=== PATIENT | female | born 1965 | race Caucasian/White ===

== ENCOUNTER 2017-06-24 02:01 | Emergency (ER) | payer OTHER ==
--- NOTE | 2017-06-24 02:17 | ED Physician Documentation ---
Abdominal Pain - HISTORIAN Historian: patient - HPI Chief Complaint: Abdominal Pain Onset: hours (1) Timing: worse Severity: severe Further Comments: yes (52 year old female patient brought in by EMS with complaint of abdominal pain. Patient yelling "bring me pain medicine, hurry". Rocking on hands and knees on stretcher. Instructed patient to repostion self on back for exam. Patient frequently yelling "bring me pain medicine". Restless, kicking legs, will not answer ROS questions. Friend at bedside cannot answer ROS questions. States "her pain is managed by her pain doctor". Patient reports pain started 1 hour ago. 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 Friend reports 2 family members with nausea and vomiting.) - ROS CONST: denies: no problems Comment: Patient uncooperative with ROS and H&P. - SOCIAL HX Smoking History: non-smoker - FAMILY HX Family History: denies: none - PAST HX Past History: other (Obtained from [facility] paper work - chronic constipation, depression, GERD, HTN, Insomnia, neuropathy of foot, urinary incontinence. ) Surgeries/Procedures: cholecystectomy - VITAL SIGNS Vital Signs: Vital Signs Temp Pulse Resp BP Pulse Ox 100 H 36 H 127/57 98 06/24/17 02:05 06/24/17 02:05 06/24/17 02:05 06/24/17 02:05 - REVIEWED ASSESSMENTS Nursing Assessment Reviewed: Yes Vitals Reviewed: Yes Progress - Progress Progress: Encouraged patient relax, slow down breathing. Explained work up would have to be completed as patient could not answer ROS and history. Old records reviewed, no previous ER admissions. Patient restless, moving all over stretcher. Repositions self on hands and knees. ED Results Lab/Radiology - Lab Results Lab Results: Lab Results 06/24/17 06/24/17 02:12 02:12 WBC 9.40 K/ul K/ul (4.00-12.00) RBC 3.77 M/ul L M/ul (3.90-5.20) Hgb 12.4 g/dL g/dL (12.0-16.0) Hct 37.0 % % (34.5-46.5) MCV 98.0 fl fl (80.0-100.0) MCH 33.0 pg pg (28.0-34.0) MCHC 33.7 g/dL g/dL (30.0-36.0) RDW 14.1 % % (11.3-14.3) Plt Count 329 K/mm3 K/mm3 (130-400) Neut % (Auto) 56.9 % % (39.0-79.0) Lymph % (Auto) 33.5 % % (16.0-50.0) Bowie % (Auto) 5.1 % % (0.0-11.0) Eos % (Auto) 1.3 % % (0.0-6.8) Baso % (Auto) 0.5 (0.0-1.5) Neut # (Auto) 5.3 # k/uL # k/uL (1.4-7.7) Lymph # (Auto) 3.1 # k/uL # k/uL (0.6-4.0) Bowie # (Auto) 0.5 # k/uL # k/uL (0.0-0.9) Eos # (Auto) 0.1 # k/uL # k/uL (0.0-0.6) Baso # (Auto) 0.0 # k/uL # k/uL (0.0-0.5) Reactive Lymphs % 2.7 % % (0.0-5.0) Reactive Lymphs # 0.3 # k/uL # k/uL (0.0-0.8) Sodium 139 mmol/L mmol/L (136-145) Potassium 3.2 mmol/L L mmol/L (3.5-5.0) Chloride 103 mmol/L mmol/L (98-110) Carbon Dioxide 25 mmol/L mmol/L (20-32) BUN 14 mg/dL mg/dL (10-26) Creatinine 0.9 mg/dL mg/dL (0.4-1.5) Estimated Creat Clear 85 Est GFR ( Amer) > 60 (60 - ) Est GFR (Non-Af Amer) > 60 (60 - ) Glucose 178 mg/dL H mg/dL (70-99) Calcium 9.5 mg/dL mg/dL (8.5-10.5) Total Bilirubin 0.9 mg/dL mg/dL (0.2-1.2) AST 27 U/L U/L (0-41) ALT 29 U/L U/L (0-45) Alkaline Phosphatase 63 U/L U/L (46-116) Total Protein 6.7 g/dL g/dL (6.0-8.5) Albumin 4.4 g/dL g/dL (3.0-5.5) - Orders Orders: ED Orders Category Date Time Status ABDOMEN COMPLETE [RAD] Stat Exams 06/24/17 Ordered CBC/PLATELET/DIFF Stat Lab 06/24/17 02:12 Completed CMP Stat Lab 06/24/17 02:12 Completed UA W/MICRO IF INDICATED Stat Lab 06/24/17 02:12 Ordered Abdominal Pain Physical Exam - Physical Exam General Appearance: anxious EENT: eye inspection normal, SUSANNE RESPIRATORY: no resp distress, chest non-tender, breath sounds normal CVS: reg rate & rhythm, heart sounds normal, equal pulses, no murmur, no gallop , PMI nml, no JVD, no friction rub, 24 ABDOMEN: soft, no organomegaly, normal bowel sounds, no abdominal bruit, no distension, other (no grimace with palpation, yells out "I'm in pain") SKIN: normal color, warm/dry, NR, INT, PAL, DR EXTREMITIES: non-tender (moves and repositions self on stretcher), normal range of motion, no evidence of injury, no edema NEURO: oriented X3, CN's nml as tested, motor nml, sensation nml Vital Signs: Vital Signs Temp Pulse Resp BP Pulse Ox 100 H 36 H 127/57 98 06/24/17 02:05 06/24/17 02:05 06/24/17 02:05 06/24/17 02:05
[2017-06-24 02:23] LABS: BASOPHILS % 0.5 (0.0-1.5); EOSINOPHILS % 1.3 % (0.0-6.8); MONOCYTES % 5.1 % (0.0-11.0); NEUTROPHILS # 5.3 # k/uL (1.4-7.7)
[2017-06-24 02:30] LABS: eGFR (African) > 60; eGFR (Non-African) > 60
[2017-06-24] MEDS ORDERED: KETOROLAC TROMETHAMINE 60 MG/2 ML VIAL ONE (03:17)
[2017-06-24] MEDS: BUTORPHANOL TARTRATE 2 MG/ML VIAL IV ONE (03:22)
[2017-06-24] MEDS: KETOROLAC TROMETHAMINE 30 MG/1ML VIAL IVP ONE (03:22)
[2017-06-24] MEDS: PROMETHAZINE HCL 25 MG/ML VIAL IM ONE (03:22)
[2017-06-24] MEDS: KETOROLAC TROMETHAMINE 60 MG/2 ML VIAL IM ONE (03:25)
[2017-06-24 06:00] VITALS: BP 125/86
--- NOTE | 2017-06-24 06:32 | Diagnostic Imaging Report ---
RUPERT LAZAR (ROMANA) - ER [facility] [address] [facility].[address] [address] Report Submission Date: Jun 24, 2017 3:06:12 AM CDT Patient Study Name: ALYSSA LIMON Date: Jun 24, 2017 2:36:12 AM CDT Modality Type: CR Gender: F Description: ABDOMEN : 69 Institution: [facility] Physician: RUPERT LAZAR (ROMANA) - ER Abdominal series History: Abdominal pain Findings: Cholecystectomy clips are present. L5/S1 degenerative disc disease is noted. T12 to L3 posterior decompression has been performed. A single loop of small bowel is borderline distended. The bowel gas pattern is otherwise normal without free air significant constipation. Impression: Nonspecific borderline distention of single loop of small bowel. Electronically signed on Jun 24, 2017 3:06:12 AM CDT by: Daniel CAMPOVERDE
== END 2017-06-24 03:49 ==
LOC: ED 02:01
DX: R10.9 Unspecified abdominal pain (principal)
CPT/HCPCS: 74020; 80053; 85025; J0595; J1885; J2550; 96375; 99283; S1016

== ENCOUNTER 2017-06-24 09:13 | Emergency (ER) | payer OTHER ==
[2017-06-24] MEDS ORDERED: ONDANSETRON HCL/PF 4 MG/ 2ML VIAL ONE (09:19)
[2017-06-24] MEDS ORDERED: Lidocaine 2%Visc 15ml 20 MG/ML UDC ONE (09:20)
[2017-06-24] MEDS: ONDANSETRON HCL/PF 4 MG/ 2ML VIAL IVP ONE ×2 (09:20→10:10)
[2017-06-24] MEDS ORDERED: MAGNESIUM HYDROXIDE/AL HYDROX 30 ML UDC PO ONE (09:20)
[2017-06-24] MEDS ORDERED: 0.9 % SODIUM CHLORIDE 1,000 ML IV ONE (09:22)
[2017-06-24] MEDS: MAG HYDROX/AL HYDROX/SIMETH 30 ML, Lidocaine 2%Visc 15ml 20 MG, PHENobarb/HYOSCY/ATROPI... PO ONE ×3 (09:23)
[2017-06-24] MEDS ORDERED: fentaNYL CITRATE/PF 100 MCG/ 2ML AMP ONE (09:23)
[2017-06-24] MEDS: 0.9 % SODIUM CHLORIDE 1,000 ML IV ONE ×2 (09:30→10:30)
[2017-06-24 09:42] LABS: MEAN CORPUSCULAR HEMOGLOBIN 33.6 pg (28.0-34.0); MEAN CORPUSCULAR VOLUME 99.4 fl (80.0-100.0)
[2017-06-24] MEDS: fentaNYL CITRATE/PF 100 MCG/ 2ML AMP IVP ONE (09:45)
[2017-06-24 09:51] LABS: eGFR (African) > 60; eGFR (Non-African) 39
[2017-06-24 10:09] LABS: SEGMENTED NEUTROPHILS % 77 % (39-79)
--- NOTE | 2017-06-24 10:15 | ED Physician Documentation ---
Abdominal Pain - HISTORIAN Historian: patient, other (sister) - HPI Stated Complaint: upper abd pain radiating to back Chief Complaint: Abdominal Pain Additonal Information: pt is chronic back pain pt but was here last noct w/abd pain. she ret now w/ severe abd pain epigastric area-hx gerd Onset: days ago (1-2) Duration: constant, waxing, waning (rates 10/10) Timing: worse Context: denies: out of country travel, bad food Severity: severe Quality: pain, other (helps to lie on lt side) Associated Symptoms: nausea, vomiting, diarrhea Exacerbated by: movements, upright position, other (lying on back) Relieved by: other (meds ) - ROS CONST: no problems CVS/RESP: none EYES/ENT: none MS/SKIN/LYMPH: none NEURO/PSYCH: headache (has migraine but better since BOTOX) - SOCIAL HX Smoking History: non-smoker Alcohol Use: none Drug Use: none - FAMILY HX Family History: no significant history - PAST HX Past History: GERD, other (HTN IBS CHR CONSTIPATION DEPOORESSION IBS HX CA SOPINE W/RADIATION AND SURG LOW EXT NEUROPATHY UA INCONT CHRONIC PAIN PT W/CONTRACT) Surgeries/Procedures: cholecystectomy, hysterectomy, other (NECK W/HARDWARE ) Home Medications: Ambulatory Orders Medication Instructions Recorded Biotin/Calcium Carbonate [Biotin 1 each PO QDAY 06/24/17 800 Mcg Tablet] Bisacodyl [Women's Laxative] 5 mg PO QDAY 06/24/17 Bupropion HCl [Bupropion Xl] 150 mg PO QDAY 06/24/17 Cyclobenzaprine HCl [Flexeril] 10 mg PO QD 06/24/17 Duloxetine HCl 30 mg PO QDAY 06/24/17 Duloxetine HCl 60 mg PO QDAY 06/24/17 Mecobalamin [B-12] 1,000 mcg SL QDAY 06/24/17 Oxycodone HCl/Acetaminophen 1 each PO QID 06/24/17 [Percocet 10/325] diphenhydrAMINE HCL [Benadryl] 25 mg PO HS 06/24/17 Allergies/Adverse Reactions: Allergies Allergy/AdvReac Type Severity Reaction Status Date / Time succinylcholine Allergy Verified 06/24/17 09:41 - VITAL SIGNS Vital Signs: Vital Signs Temp Pulse Resp BP Pulse Ox 97.9 F 113 H 20 69/44 94 06/24/17 09:40 06/24/17 09:40 06/24/17 09:40 06/24/17 09:40 06/24/17 09:40 - REVIEWED ASSESSMENTS Nursing Assessment Reviewed: Yes Vitals Reviewed: Yes ED Results Lab/Radiology - Lab Results Lab Results: Lab Results 06/24/17 06/24/17 09:30 09:30 WBC 14.30 K/ul H K/ul (4.00-12.00) RBC 4.81 M/ul M/ul (3.90-5.20) Hgb 16.2 g/dL H g/dL (12.0-16.0) Hct 47.8 % H % (34.5-46.5) MCV 99.4 fl fl (80.0-100.0) MCH 33.6 pg pg (28.0-34.0) MCHC 33.8 g/dL g/dL (30.0-36.0) RDW 14.0 % % (11.3-14.3) Plt Count 370 K/mm3 K/mm3 (130-400) Seg Neutrophils % 77 % % (39-79) Band Neutrophils % 4 % % (0-12) Lymphocytes % 11 % L % (16-50) Reactive Lymphocytes 8 % H % (0-5) Plt Morphology Comment Normal (NORMAL) Macrocytosis 1+ H (NEGATIVE) RBC Morph Comment Abnormal H (NORMAL) Sodium 138 mmol/L mmol/L (136-145) Potassium 3.8 mmol/L mmol/L (3.5-5.0) Chloride 101 mmol/L mmol/L (98-110) Carbon Dioxide 25 mmol/L mmol/L (20-32) BUN 16 mg/dL mg/dL (10-26) Creatinine 1.5 mg/dL mg/dL (0.4-1.5) Est GFR ( Amer) > 60 (60 - ) Est GFR (Non-Af Amer) 39 L (60 - ) Glucose 227 mg/dL H mg/dL (70-99) Calcium 9.3 mg/dL mg/dL (8.5-10.5) Total Bilirubin 0.7 mg/dL mg/dL (0.2-1.2) AST 30 U/L U/L (0-41) ALT 30 U/L U/L (0-45) Alkaline Phosphatase 69 U/L U/L (46-116) Total Protein 7.2 g/dL g/dL (6.0-8.5) Albumin 4.4 g/dL g/dL (3.0-5.5) Amylase 35 U/L U/L (20-104) - Orders Orders: ED Orders Category Date Time Status CT ABDOMEN PELVIS S [CT ABD & PELVIS W/O CON] Stat Exams 06/24/17 Taken AMYLASE Routine Lab 06/24/17 09:30 Completed CBC/PLATELET/DIFF Routine Lab 06/24/17 09:30 Completed CMP Routine Lab 06/24/17 09:30 Completed URINALYSIS Routine Lab 06/24/17 Ordered 0.9 % Sodium Chloride [Normal Saline] 1,000 ml Med 06/24/17 09:22 Discontinued IV .STK-MED 0.9 % Sodium Chloride [Normal Saline] 1,000 ml Med 06/24/17 09:23 Discontinued IV Q1H 0.9 % Sodium Chloride [Normal Saline] 1,000 ml Med 06/24/17 09:55 Discontinued IV Q1H HYDROmorphone HCL/PF [Dilaudid] Med 06/24/17 11:14 Once 0.5 mg IVP NOW ONE Lidocaine 2%Visc 15ml [Xylocaine] Med 06/24/17 09:20 Discontinued 300 mg .ROUTE .STK-MED ONE Mag Hydrox/Al Hydrox/Simeth [Mylanta] 30 ml Med 06/24/17 09:22 Discontinued Lidocaine 2%Visc 15ml [Xylocaine] 20 mg PHENobarb/HYOSCY/ATROPINE/SCOP [] 10 ml PO NOW Magnesium Hydroxide/Al Hydrox [Maalox] Med 06/24/17 09:20 Discontinued 30 ml PO .STK-MED ONE Ondansetron HCl/Pf [Zofran 4 mg/2 ml] Med 06/24/17 09:19 Discontinued 4 mg .ROUTE .STK-MED ONE Ondansetron HCl/Pf [Zofran 4 mg/2 ml] Med 06/24/17 09:22 Discontinued 4 mg IVP NOW ONE Ondansetron HCl/Pf [Zofran 4 mg/2 ml] Med 06/24/17 10:01 Discontinued 4 mg IVP NOW ONE fentaNYL CITRATE/PF [Duragesic] Med 06/24/17 09:23 Discontinued 100 mcg .ROUTE .STK-MED ONE fentaNYL CITRATE/PF [Duragesic] Med 06/24/17 09:24 Discontinued 50 mcg IVP NOW ONE EKG WITH COMPARISON Stat Ther 06/24/17 Ordered Abdominal Pain Physical Exam - Physical Exam General Appearance: moderate distress, severe distress EENT: eye inspection normal NECK: normal inspection, thyroid normal, supple RESPIRATORY: no resp distress, breath sounds normal CVS: reg rate & rhythm, heart sounds normal ABDOMEN: soft, tenderness (EPIGASTRIC AREA ALLEN) SKIN: warm/dry, normal color. No: cyanosis, diaphoresis, jaundice EXTREMITIES: no edema NEURO: oriented X3, depressed mood/affect. No: mood/affect nml Vital Signs: Vital Signs Temp Pulse Resp BP Pulse Ox 97.9 F 113 H 20 69/44 94 06/24/17 09:40 06/24/17 09:40 06/24/17 09:40 06/24/17 09:40 06/24/17 09:40 Discharge Clincal Impression: suspect perforated bowel, chronic pain pt-ca spine w/radiation, hyperglycemia Referrals: Lizett Head MD [Primary Care Provider] - 2 Days Home Medications: Ambulatory Orders Biotin/Calcium Carbonate [Biotin 800 Mcg Tablet] 1 each PO QDAY 06/24/17 Bisacodyl [Women's Laxative] 5 mg PO QDAY 06/24/17 Bupropion HCl [Bupropion Xl] 150 mg PO QDAY 06/24/17 Cyclobenzaprine HCl [Flexeril] 10 mg PO QD 06/24/17 Duloxetine HCl 30 mg PO QDAY 06/24/17 Duloxetine HCl 60 mg PO QDAY 06/24/17 Mecobalamin [B-12] 1,000 mcg SL QDAY 06/24/17 Oxycodone HCl/Acetaminophen [Percocet 10/325] 1 each PO QID 06/24/17 diphenhydrAMINE HCL [Benadryl] 25 mg PO HS 06/24/17 Comments: [email or web address] [facility] [place] DR SANTAMARIA Condition: Fair Disposition: 02 XFER SHT-TRM HOSP Decision to Admit: [id number] Date of Decison to Admit: 06/24/17 Decision Time: 11:23
[2017-06-24] MEDS ORDERED: HYDROmorphone HCL/PF 1 MG/ML DISP.SYRIN IVP ONE (11:14)
[2017-06-24 11:57] VITALS: BP 93/71
--- NOTE | 2017-06-24 15:41 | Diagnostic Imaging Report ---
[facility] [id number] [facility] [address] [place], [place]. [address] Report Submission Date: Jun 24, 2017 10:47:16 AM CDT Patient Study Name: ALYSSA LIMON Date: Jun 24, 2017 10:25:16 AM CDT Modality Type: CT\SR Gender: F Description: CT ABD & PELVIS W/O CO : 69 Institution: [facility] Physician ANIKA RICHARDSON - SHIN CT of the abdomen and pelvis without contrast CLINICAL HISTORY: Abdominal pain beginning last night. Nausea and vomiting. TECHNIQUE: CT of the abdomen and pelvis is performed without oral or intravenous administration of contrast. Sagittal and coronal reconstructions are performed by the technologist. Intravenous contrast was not administered because of patient's renal insufficiency. FINDINGS: Visualized lung bases are clear. The liver and spleen demonstrate fairly normal attenuation without focal defect. The gallbladder is surgically absent. There is ascites present throughout the abdomen. There is no pancreatic or adrenal abnormality. The kidneys are of normal size, shape and position. There are distended mid to distal small bowel loops with transition point in the right lower quadrant consistent with distal small-bowel obstruction. The colon is relatively decompressed. Spondylitic changes are seen in the lumbar vertebrae with degenerative disc disease at L1-2, L2-3 and L5-S1. IMPRESSION: Distal small-bowel obstruction. Ascites. Postoperative changes. Lumbar spondylosis. Electronically signed on Jun 24, 2017 10:47:16 AM CDT by: Jhonny CAMPOVERDE
== END 2017-06-24 11:57 | disposition short-term general hospital (02) ==
LOC: ED 09:13
DX: G89.29 Other chronic pain (principal); R73.9 Hyperglycemia, unspecified
CPT/HCPCS: 74176; 80053; 82150; 85025; 93005; A9270; J2405; J3010; J7030; 96361; 96374; 96375; 96376; 99284; S1016